=== PATIENT | male | born 1965 | race African-American/Black ===

== ENCOUNTER 2019-11-14 15:25 | Observation (INO) | payer MEDICAID, OTHER ==
[~2019-11-14] VITALS: Ht 172.7 cm; Wt 107.0 kg
[2019-11-14] VITALS (8 sets, daily range): BP systolic 126–151; BP diastolic 78–94
--- NOTE | 2019-11-14 15:45 | NUR ---
ED Nurse Note: Davy walked into ED after being referred by Dr. nuñez, patient states that he recently got surgery for tummy tuck surgery. presents with drainage on the right side of stoumach. patient is alert and oriented x4, vital signs stable. patient placed on quality assurance monitor final and IV started on left AC. will wait for further orders
[2019-11-14] MEDS ORDERED: Omnipaque-300 100ml vial INJ PRN (16:00)
[2019-11-14 16:10] LABS: BASOPHILS % (AUTO) 1.5 % (0.0-2.0); EOSINOPHILS % (AUTO) 2.6 % (0.0-3.0); HEMATOCRIT 48.2 % (42.0-52.0); HEMOGLOBIN 15.2 G/DL (14.2-18.0); LYMPHOCYTES % (AUTO) 28.6 % (20.0-45.0); MEAN CORPUSCULAR VOLUME 88 FL (80-99); MONOCYTES % (AUTO) 7.1 % (1.0-10.0); NEUTROPHILS % (AUTO) 60.2 % (45.0-75.0); PLATELET COUNT 279 K/UL (150-450); RED BLOOD COUNT 5.49 M/UL (4.70-6.10); RED CELL DISTRIBUTION WIDTH 14.9 % (11.6-14.8); WHITE BLOOD COUNT 7.7 K/UL (4.8-10.8)
--- NOTE | 2019-11-14 16:10 | NUR ---
ER Nurse Note: Pt's last meal at 0700. Pt stated he drank water and tea around 1200.
[2019-11-14 16:15] LABS: ANION GAP 9 mmol/L (5-15); BLOOD UREA NITROGEN 10 mg/dL (7-18); CALCIUM 8.9 MG/DL (8.5-10.1); CARBON DIOXIDE 27 MMOL/L (21-32); CHLORIDE 103 MMOL/L (98-107); CREATININE 1.1 MG/DL (0.55-1.30); POTASSIUM 3.8 MMOL/L (3.5-5.1); SODIUM 139 MMOL/L (136-145)
--- NOTE | 2019-11-14 16:15 | Diagnostic Imaging Report ---
Indication: Dyspnea Comparison: None A single view chest radiograph was obtained. Findings: Cardiomediastinal appearance is within normal limits for age. The lungs are clear. Pulmonary vascularity is appropriate. The diaphragmatic contour is smooth and costophrenic angles are sharp. No pleural effusions are identified. The bones are unremarkable. Impression: No acute findings
[2019-11-14 16:16] LABS: INR 0.9 (0.9-1.1)
[2019-11-14 16:20] LABS: ALANINE AMINOTRANSFERASE 11 U/L (12-78); ALBUMIN 3.6 G/DL (3.4-5.0); ALBUMIN/GLOBULIN RATIO 0.9 (1.0-2.7); ALKALINE PHOSPHATASE 60 U/L (46-116); ASPARTATE AMINO TRANSFERASE 18 U/L (15-37); BILIRUBIN,TOTAL 0.4 MG/DL (0.2-1.0)
--- NOTE | 2019-11-14 17:04 | Emergency Room Report ---
History of Present Illness General Chief Complaint: Skin Rash/Abscess Present Illness HPI 54-year-old male with no symptom past medical history with recent abdominoplasty done on September 25, [address] Ch, here complaining of closed operative complications. Patient had developed an abscess, which was recently drained, patient went to [place] and is now back complaining of extreme pain in the affected side and hardening of the surgical site. Denies any fever and chills, diffuse abdominal pain, chest pain shortness of breath. Has not taken medication for symptom relief. Denies nausea vomiting, diarrhea. No pus drainage noted. Sitting comfortably with stable vital signs. Patient will going to operative room for postop complications. (Luke West) Allergies: Coded Allergies: IBUPROFEN (Verified Allergy, Unknown, 11/14/19) COVID-19 Screening Contact w/high risk pt: No Recent Travel to affected area: No Experienced COVID-19 symptoms?: No (Luke West) Patient History Past Medical History: see triage record Past Surgical History: none Pertinent Family History: none Immunizations: UTD Reviewed Nursing Documentation: PMH: Agreed; PSxH: Agreed (Luke West) Review of Systems All Other Systems: negative except mentioned in HPI (Luke Wets) Physical Exam Vital Signs Date Time Temp Pulse Resp B/P (MAP) Pulse Ox O2 Delivery O2 Flow Rate FiO2 11/14/19 15:35 98.2 87 16 144/94 (111) 96 Room Air Sp02 EP Interpretation: reviewed, normal General Appearance: no apparent distress, alert, GCS 15, non-toxic Head: normocephalic, atraumatic Eyes: bilateral eye normal inspection, bilateral eye PERRL ENT: hearing grossly normal, normal pharynx, no angioedema, normal voice Neck: full range of motion, supple/symm/no masses Respiratory: chest non-tender, lungs clear, normal breath sounds, no retraction , no wheezing, speaking full sentences Cardiovascular #1: regular rate, rhythm, no edema Gastrointestinal: non tender, soft Rectal: deferred Genitourinary: no CVA tenderness Musculoskeletal: back normal, digits/nails normal Neurologic: alert, motor strength/tone normal, oriented x3, sensory intact, responsive, speech normal Psychiatric: normal inspection, judgement/insight normal Skin: no rash Lymphatic: no adenopathy (Luke West) Medical Decision Making PA Attestation All diagnoses and treatment plans were reviewed and discussed with my supervising physician Dr. Mcgrath (Luke West) Diagnostic Impression: Primary Impression: Post op infection ER Course 54-year-old male with no symptom past medical history with recent abdominoplasty done on September 25, [address] Ch, here complaining of closed operative complications. Patient had developed an abscess, which was recently drained, patient went to [place] and is now back complaining of extreme pain in the affected side and hardening of the surgical site. Denies any fever and chills, diffuse abdominal pain, chest pain shortness of breath. Has not taken medication for symptom relief. Denies nausea vomiting, diarrhea. No pus drainage noted. Sitting comfortably with stable vital signs. Patient will going to operative room for postop complications. Ddx considered but are not limited to: Postoperative abscess, postoperative scar tissue, postoperative bowel obstruction Vital signs: are WNL, pt. is afebrile H&PE are most consistent with: Postoperative abscess ORDERS: Preop orders ED INTERVENTIONS: NS bolus,rocephin per Dr. Ch's request Patient was admitted with diagnosis of postop infection to Dr. Brooks under supervision of : Alcides pt stable at time of admission (Luke West) ER Course This is a 54-year-old male endorsed to me by my PA. He presented for possible postoperative infection. By me. I agree with her findings disposition and plan. I did discuss the plan with the patient's surgeon who plans to take patient to the OR today. (Dom Mcgrath M.D.) EKG Diagnostic Results Rate: normal Rhythm: NSR ST Segments: no acute changes Other Impression No acute ST changes (Luke West) Chest X-Ray Diagnostic Results Chest X-Ray Diagnostic Results : Chest X-Ray Ordered: Yes # of Views/Limited/Complete: 1 View Indication: Other EP Interpretation: Yes PA Xray: Interpretation reviewed, by supervising MD, and agrees with findings. Interpretation: no consolidation, no effusion, no pneumothorax Impression: No acute disease Electronically Signed by: Luke Joy PA-C (Luke West) Last Vital Signs Date Time Temp Pulse Resp B/P (MAP) Pulse Ox O2 Delivery O2 Flow Rate FiO2 11/14/19 15:45 98.2 83 16 144/94 96 Room Air (Luke West) Disposition: ADMITTED INPATIENT Condition: Stable Referrals: NON PHYSICIAN (PCP) Luke West Nov 14, 2019 17:04 Dom Mcgrath M.D. Nov 14, 2019 17:17
[2019-11-14] MEDS ORDERED: cefTRIAXone 1 GM in NS 55 ML IVPB ONE (17:15)
[2019-11-14] MEDS ORDERED: Lidocaine 1% 10mg/ml/Epi 0.005mg/ml 30ml vial INJ ONE (17:27)
[2019-11-14] MEDS ORDERED: Bacitracin Oint 15gm Tube TOPIC ONE (17:27)
[2019-11-14] MEDS ORDERED: NeoSporin Gu Irrig 1ml Amp IRRIG ONE (17:28)
[2019-11-14] MEDS ORDERED: Bacitracin 50000 Units Vial ONE (17:28)
[2019-11-14] MEDS ORDERED: Midazolam 2mg/2ml Inj ONE (17:35)
[2019-11-14] MEDS ORDERED: fentaNYL 100 mcg/2 mL IV ONE (17:35)
[2019-11-14] MEDS ORDERED: Propofol 200mg/20ml IV ONE (17:38)
[2019-11-14] MEDS ORDERED: Lidocaine 1% MPF 10mg/ml 5ml ONE (17:38)
--- NOTE | 2019-11-14 17:45 | NUR ---
ED Nurse Note: pt. went to surgery
[2019-11-14] MEDS ORDERED: Sterile Water Irrig 2000ml IRRIG ONE (18:00)
[2019-11-14] MEDS ORDERED: NS Irrig 1000ml ONE (18:00)
[2019-11-14] MEDS ORDERED: LR 1000ml ONE (18:00)
--- NOTE | 2019-11-14 18:02 | Pre-Procedure Note/Attestation ---
Pre-Procedure Note/Attestation Complete Prior to Procedure Planned Procedure: right Procedure Narrative: infection of right abdomen status post tummy tuck Attestation I attest that I discussed the nature of the procedure; its benefits; risks and complications; and alternatives (and the risks and benefits of such alternatives ), prior to the procedure, with the patient (or the patient's legal site safety representative). I attest that, if there was a reasonable possibility of needing a blood transfusion, the patient (or the patient's legal site safety representative) was given the [facility] standardized written summary, pursuant to the Marquez Gay Blood Safety Act ([place] Health and Safety Code # 1645, as amended). I attest that I re-evaluated the patient just prior to the surgery and that there has been no change in the patient's H&P, except as documented below: Fransico Ch MD Nov 14, 2019 18:02
--- NOTE | 2019-11-14 18:45 | Anethesia Preoperative Eval ---
Anesthesia Pre-op PMH/ROS General Date of Evaluation: Nov 14, 2019 Time of Evaluation: 17:50 Anesthesiologist: Stephanie ASA Score: ASA 2 Mallampati Score Class I : Soft palate, uvula, fauces, pillars visible Class II: Soft palate, uvula, fauces visible Class III: Soft palate, base of uvula visible Class IV: Only hard plate visible Mallampati Classification: Class II Surgeon: Jing Diagnosis: ABdominal wall abscess Surgical Procedure: I&D of abdominal wall abscess Anesthesia History: none Family History: no anesthesia problems Allergies: Coded Allergies: IBUPROFEN (Verified Allergy, Unknown, 11/14/19) Medications: see eMAR Patient NPO?: Yes Past Medical History Cardiovascular: Denies: HTN, CAD, NH, valve dz, arrhythmia, other Pulmonary: Denies: asthma, COPD, EVETTE, other Gastrointestinal/Genitourinary: Reports: GERD; Denies: CRI, ESRD, other Neurologic/Psychiatric: Denies: dementia, CVA, depression/anxiety, TIA, other Endocrine: Denies: DM, hypothyroidism, steroids, other HEENT: Denies: cataract (L), cataract (R), glaucoma, TIMBI-SHA SHOSHONE (L), TIMBI-SHA SHOSHONE (R), other Hematology/Immune: Denies: anemia, DVT, bleeding disorder, other Musculoskeletal/Integumentary: Denies: OA, RA, DJD, DDD, edema, other Other: obesity PMH Narrative: as above PSxH Narrative: spine Sx abdominoplasty breasts reduction liposuction Anesthesia Pre-op Phys. Exam Physician Exam Last Vital Signs Date Time Temp Pulse Resp B/P (MAP) Pulse Ox O2 Delivery O2 Flow Rate FiO2 11/14/19 15:45 98.2 83 16 144/94 96 Room Air Constitutional: NAD Neurologic: CN 2-12 intact Cardiovascular: RRR, no M/R/G Respiratory: CTA Gastrointestinal: other - obesity Airway Exam Mallampati Score: Class II MO: full Neck: flexible ROM: full Teeth: intact Dentures: no upper, no lower Anesthesia Pre-op A/P Labs Hematology Test 11/14/19 15:50 White Blood Count 7.7 K/UL (4.8-10.8) Red Blood Count 5.49 M/UL (4.70-6.10) Hemoglobin 15.2 G/DL (14.2-18.0) Hematocrit 48.2 % (42.0-52.0) Mean Corpuscular Volume 88 FL (80-99) Mean Corpuscular Hemoglobin 27.7 PG (27.0-31.0) Mean Corpuscular Hemoglobin Concent 31.6 G/DL (32.0-36.0) L Red Cell Distribution Width 14.9 % (11.6-14.8) H Platelet Count 279 K/UL (150-450) Mean Platelet Volume 7.0 FL (6.5-10.1) Neutrophils (%) (Auto) 60.2 % (45.0-75.0) Lymphocytes (%) (Auto) 28.6 % (20.0-45.0) Monocytes (%) (Auto) 7.1 % (1.0-10.0) Eosinophils (%) (Auto) 2.6 % (0.0-3.0) Basophils (%) (Auto) 1.5 % (0.0-2.0) Coagulation Test 11/14/19 15:50 Prothrombin Time 10.0 SEC (9.30-11.50) Prothromb Time International Ratio 0.9 (0.9-1.1) Activated Partial Thromboplast Time 28 SEC (23-33) Chemistry Test 11/14/19 15:50 Sodium Level 139 MMOL/L (136-145) Potassium Level 3.8 MMOL/L (3.5-5.1) Chloride Level 103 MMOL/L (98-107) Carbon Dioxide Level 27 MMOL/L (21-32) Anion Gap 9 mmol/L (5-15) Blood Urea Nitrogen 10 mg/dL (7-18) Creatinine 1.1 MG/DL (0.55-1.30) Estimat Glomerular Filtration Rate > 60 mL/min (>60) Glucose Level 85 MG/DL (74-106) Calcium Level 8.9 MG/DL (8.5-10.1) Total Bilirubin 0.4 MG/DL (0.2-1.0) Aspartate Amino Transf (AST/SGOT) 18 U/L (15-37) Alanine Aminotransferase (ALT/SGPT) 11 U/L (12-78) L Alkaline Phosphatase 60 U/L (46-116) Total Protein 7.8 G/DL (6.4-8.2) Albumin 3.6 G/DL (3.4-5.0) Globulin 4.2 g/dL Albumin/Globulin Ratio 0.9 (1.0-2.7) L Risk Assessment & Plan Assessment: ASA 2 Plan: GA with LMA Status Change Before Surgery: No Pre-Antibiotics Drug: Ancef 2gr. Given Within 1 Hr of Incision: Yes Time Given: 18:12 Alvaro Brown MD Nov 14, 2019 18:45
[2019-11-14] MEDS ORDERED: LR 1000ml 1,000 ML IVLG SCH (18:46)
[2019-11-14] MEDS ORDERED: Meperidine 25mg/0.5ml Inj (FOR RIGORS ONLY) IV PRN (19:00)
[2019-11-14] MEDS ORDERED: DiphenhydrAMINE 50mg/ml Inj IVP PRN (19:00)
[2019-11-14] MEDS ORDERED: Hydromorphone 0.5mg/0.5ml inj IVP PRN (19:00)
--- NOTE | 2019-11-14 19:44 | Immediate Post-Op Evaluation ---
Immediate Post-Op Evalulation Immediate Post-Op Evalulation Procedure: I&D of abdominal wall abscess Date of Evaluation: Nov 14, 2019 Time of Evaluation: 19:43 IV Fluids: 600 Blood Products: none Estimated Blood Loss: 150 Urinary Output: none Blood Pressure Systolic: 134 Blood Pressure Diastolic: 68 Pulse Rate: 72 Respiratory Rate: 20 O2 Sat by Pulse Oximetry: 99 Temperature (Fahrenheit): 97.6 Pain Score (1-10): 2 Nausea: No Vomiting: No Complications none Patient Status: reacts, patent, none Hydration Status: adequate Alvaro Brown MD Nov 14, 2019 19:44
[2019-11-14] MEDS: LR 1000ml 1,000 ML IV SCH (19:45)
[2019-11-14] MEDS ORDERED: HYDROcodone/Acetamin 5/325 tab ORAL PRN (19:45)
--- NOTE | 2019-11-14 19:59 | 48 Hour Post Anesthesia Eval ---
Post Anesthesia Evaluation Procedure: I&D of abdominal wall abscess Date of Evaluation: Nov 14, 2019 Time of Evaluation: 19:58 Blood Pressure Systolic: 123 0: 76 Pulse Rate: 68 Respiratory Rate: 20 Temperature (Fahrenheit): 97.6 O2 Sat by Pulse Oximetry: 98 Airway: patent Nausea: No Vomiting: No Pain Intensity: 2 Hydration Status: adequate Cardiopulmonary Status: stable Mental Status/LOC: patient returned to baseline Follow-up Care/Observations: n/a Post-Anesthesia Complications: none Follow-up care needed: ready to discharge Alvaro Brown MD Nov 14, 2019 19:59
--- NOTE | 2019-11-14 20:27 | NUR ---
NURSE NOTES: Received report from Fe, COMPUTER SCIENCE PROFESSOR. Pt is awake, lying semi-parisi's; comfortably resting. Pt's belonging's list checked off with Lydia Valentino from ER. Pt's belongings with the pt at bedside. Checked IV site; patent and flushed. AOx4; able to make needs known. Dressing on the abdomen, dry and intact. ANGE drain noted; patent and draining. Bed at lowest position. Brakes on. Siderails up x3. Call light within reach. Will continue to monitor.
[2019-11-14] MEDS ORDERED: HYDROmorphone 1mg/ml Carpuject IVP PRN (21:00)
[2019-11-14] MEDS: Cephalexin 500mg cap ORAL SCH (21:26)
[2019-11-15] VITALS: BP 130/60
[2019-11-15 04:00] VITALS: BP 115/71
[2019-11-15] MEDS: LR 1000ml 1,000 ML IV SCH ×2 (05:27→06:28)
--- NOTE | 2019-11-15 07:44 | NUR ---
HAND-OFF: Report given to JUDY Caldera. Pt is awake and in stable condition. Plan of care endorsed.
--- NOTE | 2019-11-15 07:45 | NUR ---
NURSE NOTES: Report received from Lissett KIM. Patient is awake and alert x 4 sitting up right in bed consuming breakfast. Patient is on room air. Denies shortness of breath. Denies chest pain. Patient noted to have surgical dressing, clean dry and in tact. Patient noted to have ANGE drain with red fluid draining in bulb. Patent and in tact. Patient noted to have 20 nimesh IV in left ac with fluids running per MD orders. Endorsed that patient was cleared by surgery and is to be discharged home. Will contact primary physician for discharge. Bed locked, in lowest position. Call light in reach. Will continue to follow plan of care.
[2019-11-15] MEDS: Cephalexin 500mg cap ORAL SCH (08:18)
[2019-11-15 11:00] VITALS: BP 126/88
--- NOTE | 2019-11-15 11:45 | NUR ---
NURSE NOTES: Patient seen by Doctor Jose. Patient cleared for discharge. Patient awake and alert x 4. Patient in stable condition. Patient denies chest pain and shortness of breath. Dressing clean dry and intact. ANGE drain emptied. Drain patent and in tact. Drain to be left in place per MD orders. Reviewed with patient signs of infection and why patient should seek medical advice. Patient verbalized understanding. IV and name band removed. Belongings list reviewed. Paper work signed. Patient brought down to lobby and left care in stable condition. Patient had no further questions at this time. Care to end for patient at this time.
[2019-11-15] MEDS ORDERED: Cephalexin 500mg cap ORAL SCH (12:05)
--- NOTE | 2019-11-15 14:00 | History and Physical Report ---
DATE OF ADMISSION: 11/14/2019 HISTORY OF PRESENT ILLNESS: This is a 54-year-old male, who underwent abdominoplasty. He presented with an abscess. He required repeat intervention last night by Surgery and a ANGE was placed. This morning, he feels better and wants to go home. PAST MEDICAL HISTORY: Notable for obesity, status post recent abdominal surgery. REVIEW OF SYSTEMS: Denies any headaches, hematemesis, melena, hematochezia, night sweats, or weight loss. HOME MEDICATIONS: None except for pain medications. PHYSICAL EXAMINATION: GENERAL: Reveals a 54-year-old male. HEENT: Unremarkable. LUNGS: Clear breath sounds. ABDOMEN: Soft. There is a ANGE in place. EXTREMITIES: There is no edema. LABORATORY DATA: Lab testing shows normal CBC and BMP. IMPRESSION: Postop day #1, status post ANGE placement. DISCUSSION: The patient looking to go home and has been cleared by General Surgery. We will discharge home, outpatient followup. Keep ANGE in place. Kashif Garcia M.D. DR: CHRISTOPH JOB#: [id number] CC:
--- NOTE | 2019-11-20 10:49 | NUR ---
*-* INSURANCE *-* ALL CLINICALS HAVE BEEN FAXED TO: [facility] CM:LÓPEZ P: [phone] F: [phone]
--- NOTE | 2019-11-22 02:45 | Operative Note - Dictated ---
DATE OF OPERATION: 11/14/2019 SURGEON: Fransico Ch M.D. PREOPERATIVE DIAGNOSIS: Infection of right lower abdomen, status post tummy tuck 6 weeks ago. Patient had firmness, redness, and 50 mL of pus that was evacuated on the right side earlier that day. . Patient's culture came back Peptostreptococcus. Patient was brought to the operating room to have reopening of the wound, irrigation, and debridement and closure with a drain. Patient understood the risks, complications, and alternative methods of treatment. DESCRIPTION OF PROCEDURE: He was brought to the operating room, placed in supine position, given Betadine, and was injected with Xylocaine 0.25% 1:400,000 of epinephrine in a suture line using liquid with a 22-gauge spinal needle. We then entered the space using a 10 blade, undermined the skin, debrided using the back and the front end of the blade, suction, curettage, and was able to get some old blood and minimal pus. The abdomen was then irrigated with saline and with multiple copious amounts and also Betadine. The patient was then closed using a 16-Romanian drain with a [place] bulb and closed using 2-0 Vicryl in the dermis and 4-0 interrupted sutures in the skin with benzoin and Steri-Strips were placed to close the incision. Patient was then extubated and transferred to the postop recovery facility in satisfactory condition. Fransico Ch M.D. DR: HUSSEIN JOB#: [id number] CC:
--- NOTE | 2019-11-23 15:47 | Discharge Summary ---
Discharge Summary Discharge Summary _ DATE OF ADMISSION: November 14, 2019 DATE OF DISCHARGE: November 15, 2019 DISCHARGED BY: Dr. Tawanda Garcia CONSULTANTS: Dr. Fransico Ch BRIEF HOSPITAL COURSE: Patient is a 54-year-old male, with no medical history and has undergone recent abdominoplasty on September 25, [address] Ch, presented to ED due to postoperative complications. Patient had developed an abscess, which was recently drained. Patient complained of extreme pain in the affected area and widening of the surgical site denied any fever and chills, chest pain or shortness of breath. Upon evaluation in ED, vital signs were stable. Blood work did not show any leukocytosis. Hemoglobin and hematocrit were stable. Electrolytes were normal. Chest x-ray did not show any acute findings. Patient was then admitted for postop complications. He was taken to the OR. He underwent wound irrigation, debridement and closure with a drain by Dr Ch. He tolerated procedure well. He was given pain management. He was started empirically on Keflex. First day postop, patient was feeling better. ANGE drain in place. Diet was advanced. He was then cleared for discharge home to follow-up as outpatient. Continue outpatient antibiotics. FINAL DIAGNOSES: Postop infection of right lower abdomen, status post abdominoplasty Status post reopening of the wound, irrigation, debridement and closure with a ANGE drain DISPOSITION: Patient was discharged home. DISCHARGE MEDICATIONS: Refer to Discharge Medication List. DISCHARGE INSTRUCTIONS: Follow-up in a week. I have been assigned to complete a discharge summary on this account, I was not involved with the patient's management.--GUSTAVO Mckeon Jacqueline Robles NP Nov 23, 2019 15:47
== END 2019-11-15 11:48 | disposition home or self-care (01) ==
LOC: EMR 16:00 → SUR 17:50 → 4E 20:22 → EDBEDREQ 20:22 → 4E 22:31
DX: T81.49XA Infection following a procedure, other surgical site, initial encounter (principal); Y83.8 Other surgical procedures as the cause of abnormal reaction of the patient, or of later complication, without mention of misadventure at the time of the procedure; Y92.9 Unspecified place or not applicable; Z88.6 Allergy status to analgesic agent; E66.9 Obesity, unspecified; R06.00 Dyspnea, unspecified
CPT/HCPCS: 11042; 36415; 71045; 80053; 85025; 85610; 85730; 86850; 86900; 86901; 93005; 96361; 96365; J0690; J0696; J1170; J2250; J2704; J3010; J7030; J7120; Z7502; Z7512; 94003; 94150; 99285; G0378; J2180